=== PATIENT | male | born 1975 | race Caucasian/White ===

== ENCOUNTER 2025-01-03 09:21 | Day surgery (SDC) | payer OTHER ==
[~2025-01-03] VITALS: Ht 180.3 cm; Wt 91.6 kg
[~2025-01-03 09:21] MED LIST: Lactated Ringer's 1,000 ML IV ONE; propofoL 50 ML IV ONE
[2025-01-03] MEDS ORDERED: Lactated Ringer's 1,000 ML IV ONE (10:22)
== END 2025-01-03 12:00 | disposition home or self-care (01) ==
LOC: ORSCSDS 09:21
PROVIDERS: Surgery
PROC: 0DJD8ZZ Inspection of Lower Intestinal Tract, Via Natural or Artificial Opening Endoscopic (ICD-10-PCS; principal; 2025-01-03 10:45)
DX: Z12.11 Encounter for screening for malignant neoplasm of colon (principal); F32.A Depression, unspecified; E78.00 Pure hypercholesterolemia, unspecified
CPT/HCPCS: J2704; J7120